=== PATIENT | female | born 1975 | race African-American/Black ===

== ENCOUNTER 2016-10-11 23:37 | Emergency (ER) | payer SELFPAY ==
[~2016-10-11] VITALS: Ht 149.9 cm; Wt 77.3 kg
[2016-10-12 01:23] LABS: EOSINOPHILS % (AUTO) 2.8 % (1.0-6.0); HEMATOCRIT 39.5 % (36-46); HEMOGLOBIN 12.8 g/dL (12.0-16.0); LYMPHOCYTES % (AUTO) 54.3 % (22.0-44.0); MEAN CORPUSCULAR HEMOGLOBIN 27.6 pg (26.0-34.0); MEAN CORPUSCULAR HGB CONC 32.4 G/dL (31.0-37.0); MEAN CORPUSCULAR VOLUME 85 fL (80-100); MONOCYTES # (AUTO) 0.5 K/uL (0.1-1.0); MONOCYTES % (AUTO) 8.6 % (2.0-9.0); NEUTROPHILS # (AUTO) 1.8 K/uL (1.8-7.7); NEUTROPHILS % (AUTO) 33.3 % (40.0-70.0); PLATELET COUNT (AUTO) 387 K/uL (150-450); RED BLOOD CELL COUNT(AUTO) 4.64 MIL/uL (4.00-5.20); WHITE BLOOD COUNT (AUTO) 5.5 K/uL (4.5-11.0)
[2016-10-12 01:31] LABS: APPEARANCE,URINE CLOUDY (CLEAR); GLUCOSE, URINE (UA) NEGATIVE (NEGATIVE); KETONES,URINE TRACE mg/dL (NEGATIVE); LEUKOCYTE ESTERASE ,URINE SMALL (NEGATIVE); OCCULT BLOOD,URINE NEGATIVE (NEGATIVE); PROTEIN,URINE TRACE (NEGATIVE)
[2016-10-12 01:32] LABS: ADD UA MICROSCOPIC YES
[2016-10-12 01:38] LABS: ANION GAP 6 mmol/L (8-16); CALCIUM, TOTAL 9.1 mg/dL (8.8-10.5); CARBON DIOXIDE 30 mmol/L (22-29); CHLORIDE 100 mmol/L (98-107); CREATININE 0.88 mg/dL (0.60-1.30); GLOMERULAR FILTR. RATE CALC > 60 mL/min (>60); POTASSIUM 3.7 mmol/L (3.5-5.1); SODIUM SERUM 136 mmol/L (136-145); UREA NITROGEN, BLOOD 9 mg/dL (7-18)
[2016-10-12 01:44] LABS: ALANINE AMINOTRANSFERASE 23 U/L (12-78); ALBUMIN 3.9 g/dL (3.4-5.0); ASPARTATE AMINOTRANSFERASE 14 U/L (15-37); BILIRUBIN,TOTAL 0.4 mg/dL (0.1-1.0); TOTAL PROTEIN, SERUM 7.7 g/dL (6.4-8.2)
[2016-10-12 01:49] LABS: RBC,URINE 0-2 /HPF (0-2); SQUAMOUS EPITHELIAL CELL,UR Few /LPF (None Seen)
[2016-10-12] MEDS ORDERED: CIPROFLOXACIN HCL 250 MG TABLET PO ONE (04:15)
[2016-10-12] MEDS ORDERED: PANTOPRAZOLE SODIUM 40 MG DR TABLET PO ONE (04:15)
[2016-10-12] MEDS ORDERED: DONNATAL/LIDOCAINE/MAALOX 55 ML BOTTLE PO ONE (04:15)
[2016-10-12 04:49] VITALS: BP 119/81
== END 2016-10-12 05:01 | disposition home or self-care (01) ==
LOC: EMS 23:38
DX: K29.60 Other gastritis without bleeding (principal); N39.0 Urinary tract infection, site not specified; K21.9 Gastro-esophageal reflux disease without esophagitis; F17.210 Nicotine dependence, cigarettes, uncomplicated
CPT/HCPCS: 36415; 80053; 81001; 83690; 84703; 85025; 87086; 99284; Z7610

== ENCOUNTER 2017-06-17 14:25 | Emergency (ER) | payer MEDICAID ==
[~2017-06-17] VITALS: Ht 152.4 cm; Wt 79.5 kg
[2017-06-17] MEDS ORDERED: BUTE12CR TP (14:32)
[2017-06-17] MEDS ORDERED: CYCL10 PO (14:32)
[2017-06-17] MEDS ORDERED: ACET-2744 PO (14:32)
[2017-06-17] MEDS ORDERED: IBUPROFEN 600 MG TABLET PO ONE (16:45)
[2017-06-17 17:15] VITALS: BP 110/70
== END 2017-06-17 17:33 | disposition home or self-care (01) ==
LOC: EMS 14:26
DX: M54.5 Low back pain (principal); M94.0 Chondrocostal junction syndrome [Tietze]
CPT/HCPCS: 99283